=== PATIENT | male | born 1965 | race Caucasian/White ===

== ENCOUNTER 2018-10-28 20:46 | Emergency (ER) | payer MEDICAID ==
[2018-10-28] MEDS: IBUPROFEN 600 MG TAB PO (21:11)
[2018-10-28] MEDS: DIPHTH/TET/ACEL PERTUSS (ADULT) 0.5 ML VIAL IM* (21:11)
[2018-10-28] MEDS: LIDOCAINE 1% (MDV) 20 ML INJ SC (21:17)
[2018-10-28] MEDS: CEFAZOLIN 1 GM INJ IM (21:49)
== END 2018-10-28 22:10 | disposition home or self-care (01) ==
LOC: FTE 20:46
DX: S82.65XA Nondisplaced fracture of lateral malleolus of left fibula, initial encounter for closed fracture (principal); W20.8XXA Other cause of strike by thrown, projected or falling object, initial encounter; Y92.9 Unspecified place or not applicable; Z23 Encounter for immunization
CPT/HCPCS: 12002; 73610; 90471; 90715; 96372; 99284-25

== ENCOUNTER 2018-10-31 08:31 | Emergency (ER) | payer MEDICAID | END 2018-10-31 09:12 | disposition home or self-care (01) | LOC: FTE 08:31 | DX: Z48.01 Encounter for change or removal of surgical wound dressing (principal) | CPT/HCPCS: 99281; Z7502 ==

== ENCOUNTER 2018-11-04 08:05 | Emergency (ER) | payer MEDICAID | END 2018-11-04 09:05 | disposition home or self-care (01) | LOC: FTE 08:05 | DX: S82.892D Other fracture of left lower leg, subsequent encounter for closed fracture with routine healing (principal); X58.XXXD Exposure to other specified factors, subsequent encounter | CPT/HCPCS: 99282; Z7502 ==

== ENCOUNTER → 2018-11-09 | Emergency (ER) | payer MEDICAID | END | disposition home or self-care (01) | LOC: FTE 09:32 | DX: Z48.02 Encounter for removal of sutures (principal) | CPT/HCPCS: 99281 ==